=== PATIENT | female | born 1980 | race Caucasian/White ===

== ENCOUNTER 2018-05-19 16:14 | Inpatient (IN) | payer MEDICAID ==
[~2018-05-19] VITALS: Ht 157.5 cm; Wt 73.8 kg
[~2018-05-19 16:14] MED LIST: CLIN300C85 PO; CYCL-1 PO; DULO-31 PO; MECL25TA3 PO; NAPR-1154 PO; ONDA8TAB13 PO; PER5325T PO; PHEN-824 PO; PRED20TA PO; VALA500T PO
[2018-05-19] MEDS ORDERED: normal saline 1000ML IV soln IV ONE (16:50)
[2018-05-19] MEDS ORDERED: normal saline 1000ml 1,000 ML IV ONE (16:50)
[2018-05-19] MEDS ORDERED: levoFLOXACIN-Levaquin 750MG/D5 150 ML IV ONE (17:00)
[2018-05-19 17:10] LABS: HEMATOCRIT 34.8 % (35.0-45.0); HEMOGLOBIN 11.8 g/dl (12.0-16.0); MEAN CORPUSCULAR HEMOGLOBIN 28.6 PG (27.0-31.0); MEAN CORPUSCULAR HGB CONC 33.8 % (33.0-36.5); MEAN CORPUSCULAR VOLUME 84.6 FL (78-98); MEAN PLATELET VOLUME 7.4 FL (7.4-10.4); PLATELET COUNT 115 X10'3 (140-440); RED BLOOD COUNT 4.11 X10'6 (4.20-5.60); RED CELL DISTRIBUTION WIDTH 13.4 % (11.5-14.5); WHITE BLOOD COUNT 1.9 X10'3 (4.5-11.0)
[2018-05-19 17:24] LABS: INR 1.1 INR; PARTIAL THROMBOPLASTIN TIME 32 SECONDS (22-32); PROTHROMBIN TIME 11.4 SECONDS (9.0-12.0)
[2018-05-19 17:25] LABS: ALANINE AMINOTRANSFERASE 21 U/L (12-78); ALBUMIN 2.7 G/DL (3.4-5.0); ALBUMIN/GLOBULIN RATIO 0.9 (1.1-1.5); ALKALINE PHOSPHATASE 75 IU/L (46-116); ANION GAP 10 (8-16); ASPARTATE AMINO TRANSFERASE 21 U/L (10-37); BILIRUBIN,TOTAL 0.3 MG/DL (0.1-1.0); BLOOD UREA NITROGEN 20 MG/DL (7-18); BUN/CREATININE RATIO 19.2 (6.6-38.0); CALCIUM 7.6 MG/DL (8.5-10.1); CHLORIDE 103 MMOL/L (99-107); CREATININE 1.04 MG/DL (0.40-0.90); GLUCOSE 118 MG/DL (70-104); MAGNESIUM 1.3 MG/DL (1.5-2.4); POTASSIUM 3.1 MMOL/L (3.5-5.1); SODIUM 138 MMOL/L (135-145); TOTAL CARBON DIOXIDE 24.6 MMOL/L (24-32); TOTAL PROTEIN 5.6 G/DL (6.4-8.2); eGFR 60 ML/MIN
[2018-05-19 17:39] LABS: ANISOCYTOSIS 1+; MICROCYTOSIS 1+; PLATELET ESTIMATE DECREASED; TOTAL CELLS COUNTED 100
[2018-05-19] MEDS ORDERED: SERT50TA10 PO (17:50)
[2018-05-19] MEDS ORDERED: BACL20TA PO (17:50)
[2018-05-19] MEDS ORDERED: BUPR1FIL3 SL (17:50)
[2018-05-19] MEDS ORDERED: ACYC400T PO (17:50)
[2018-05-19] MEDS ORDERED: normal saline 1000ML IV soln IVB ONE (17:55)
[2018-05-19] MEDS ORDERED: NORepinephrine 8mg/ 250ml NS 250 ML IV SCH (19:00)
[2018-05-19 20:04] LABS: URINE HCG NEGATIVE (NEG)
[2018-05-19] MEDS ORDERED: HYDROcodone/acetaminophen 5mg/325mg tablet PO PRN (20:20)
[2018-05-19] MEDS ORDERED: HYDROcodone/acetaminophen 10/325mg tab PO PRN (20:20)
[2018-05-19] MEDS ORDERED: magnesium hydroxide 30ml (MOM) UD suspension PO PRN (20:20)
[2018-05-19] MEDS ORDERED: ipratropium/albuterol 3ml nebule NEB PRN (20:20)
[2018-05-19] MEDS ORDERED: acetaminophen 325mg tablet PO PRN (20:20)
[2018-05-19] MEDS: K, MAG and/or Phos replacement - Verify level? MC SCH (20:20)
[2018-05-19 20:37] LABS: URINE AMPHETAMINE SCREEN NEGATIVE (Neg); URINE BARBITUATE SCREEN NEGATIVE (Neg); URINE BENZODIAZEPINES SCREEN NEGATIVE (Neg); URINE CANNABINOID SCREEN POSITIVE (Neg); URINE COCAINE SCREEN NEGATIVE (Neg); URINE METHADONE SCREEN NEGATIVE (Neg); URINE OPIATE SCREEN POSITIVE (Neg); URINE PHENCYCLIDINE SCREEN NEGATIVE (Neg)
[2018-05-19] MEDS: CefTRIAXone/D5W-Rocephin 1gm 50 ML IV SCH (20:56)
[2018-05-19] MEDS: normal saline 1000ml 1,000 ML IV SCH (20:57)
[2018-05-19] MEDS: oseltamivir phos 75mg capsule PO SCH (20:57)
[2018-05-19] MEDS: potassium Cl 20 mEq SR tablet PO PRN (21:31)
[2018-05-19 21:54] LABS: CLARITY,URINE CLEAR (Clear); COLOR,URINE YELLOW (Yellow); GLUCOSE, URINE NEGATIVE (Neg); KETONES,URINE TRACE mg/dl (Neg); LEUKOCYTE ESTERASE ,URINE NEGATIVE (Neg); NITRITES, URINE NEGATIVE (Neg); OCCULT BLOOD,URINE NEGATIVE (Neg); PROTEIN,URINE 30 mg/dl (Neg); UA COLLECTION TYPE FOLEY CATH; UROBILINOGEN,URINE 0.2 E.U/dL (0.2-1.0)
[2018-05-19 22:10] LABS: BACTERIA,URINE NONE SEEN /HPF (Neg); RBC,URINE 0-2 /HPF (0-2); SQUAMOUS EPITHELIAL CELL,UR FEW /LPF (FEW); WBC,URINE 0-4 /HPF (0-4)
[2018-05-19 22:11] LABS: MUCUS STRANDS MODERATE /LPF (Neg); TRANSITIONAL EPI CELLS,URINE FEW /HPF
[2018-05-20] VITALS (24 sets, daily range): BP systolic 83–123; BP diastolic 40–68
[2018-05-20] MEDS ORDERED: normal saline 1000ml 1,000 ML IVB ONE (00:06)
[2018-05-20 00:21] LABS: OXYGEN SATURATION (MIXED VEN) 63.1 % (60-80); PO2 MIXED VENOUS (TEMP COR) 34.7 mmHg (35-46)
[2018-05-20] MEDS ORDERED: ketorolac tromethamine 15mg/ml inj. IV ONE (00:45)
[2018-05-20 02:56] LABS: BASOPHILS % (AUTO) 0 % (0-1); EOSINOPHILS % (AUTO) 0 % (0-6); HEMOGLOBIN 12.2 g/dl (12.0-16.0); LYMPHOCYTES # (AUTO) 0.6 X10'3 (1.1-4.8); LYMPHOCYTES % (AUTO) 8.6 % (21-51); MEAN CORPUSCULAR HEMOGLOBIN 28.1 PG (27.0-31.0); MEAN CORPUSCULAR VOLUME 85.2 FL (78-98); MEAN PLATELET VOLUME 8.1 FL (7.4-10.4); MONOCYTES # (AUTO) 0.2 X10'3 (0-0.9); MONOCYTES % (AUTO) 3.4 % (2-12); NEUTROPHILS # (AUTO) 6.1 X10'3 (1.8-7.7); PLATELET COUNT 156 X10'3 (140-440); RED BLOOD COUNT 4.34 X10'6 (4.20-5.60); RED CELL DISTRIBUTION WIDTH 13.4 % (11.5-14.5); WHITE BLOOD COUNT 6.9 X10'3 (4.5-11.0)
[2018-05-20 03:05] LABS: ALANINE AMINOTRANSFERASE 18 U/L (12-78); ALBUMIN 2.3 G/DL (3.4-5.0); ALBUMIN/GLOBULIN RATIO 0.8 (1.1-1.5); ALKALINE PHOSPHATASE 62 IU/L (46-116); ANION GAP 10 (8-16); ASPARTATE AMINO TRANSFERASE 20 U/L (10-37); BILIRUBIN,TOTAL 0.4 MG/DL (0.1-1.0); BLOOD UREA NITROGEN 18 MG/DL (7-18); CALCIUM 6.8 MG/DL (8.5-10.1); CHLORIDE 108 MMOL/L (99-107); CREATININE 0.82 MG/DL (0.40-0.90); GLUCOSE 84 MG/DL (70-104); MAGNESIUM 1.1 MG/DL (1.5-2.4); POTASSIUM 4.7 MMOL/L (3.5-5.1); SODIUM 139 MMOL/L (135-145); TOTAL CARBON DIOXIDE 20.7 MMOL/L (24-32); TOTAL PROTEIN 5.2 G/DL (6.4-8.2); eGFR 78 ML/MIN
[2018-05-20] MEDS: acetaminophen 325mg tablet PO PRN ×3 (03:50→17:48)
[2018-05-20] MEDS ORDERED: vancomycin/NS 1 GM ADD-VANTAGE 250 ML X 1 DOSE IV ONE (07:30)
[2018-05-20] MEDS: NORepinephrine 8mg/ 250ml NS 250 ML IV PRN (07:34)
[2018-05-20] MEDS: docusate sod 100mg capsule PO SCH ×2 (07:37→19:58)
[2018-05-20] MEDS: pantoprazole 40mg Tablet.DR PO SCH (07:37)
[2018-05-20] MEDS: heparin, porcine 5000 units/ml vial SQ SCH ×2 (07:37→19:59)
[2018-05-20] MEDS: sertraline 50mg tablet PO SCH (07:37)
[2018-05-20] MEDS: baclofen 10mg tablet PO SCH (07:38)
[2018-05-20] MEDS: acyclovir 200 MG capsule PO SCH ×2 (07:38→19:58)
[2018-05-20] MEDS: oseltamivir phos 75mg capsule PO SCH ×2 (07:38→19:58)
[2018-05-20] MEDS: ondansetron/PF 4mg/2ml inj IV PRN ×2 (07:52→17:38)
[2018-05-20] MEDS ORDERED: enoxaparin 40mg/0.4ml syringe SUBCUT SCH (08:00)
[2018-05-20] MEDS ORDERED: buprenorphine/naloxone 2-0.5mg sublingual tablet SL SCH (08:00)
[2018-05-20] MEDS ORDERED: buprenorphine/naloxone 8mg/2mg SL tablet SL SCH (08:00)
[2018-05-20] MEDS: K, MAG and/or Phos replacement - Verify level? MC SCH (08:16)
[2018-05-20 09:23] LABS: TOTAL CELLS COUNTED 100; TOXIC GRANULATION 1+
[2018-05-20 09:24] LABS: BURR CELLS 1+; PLATELET ESTIMATE NORMAL
[2018-05-20] MEDS: normal saline 1000ml 1,000 ML IV SCH ×2 (10:01→23:01)
[2018-05-20] MEDS ORDERED: magnesium 4gm in 100ml NS 100 ML IV ONE (11:20)
[2018-05-20] MEDS: AZITHROMYCIN 500 MG in NS 250ml IV.SOLN IV SCH (13:50)
[2018-05-20] MEDS: vancomycin/NS 1 GM ADD-VANTAGE 250 ML IV SCH (15:11)
[2018-05-20] MEDS ORDERED: levoFLOXACIN-Levaquin 750MG/D5 150 ML IV SCH (17:00)
[2018-05-20] MEDS: lactobacillus rhamnosus 10,000 MMU CELLS/CAPSULE PO SCH (19:58)
[2018-05-20 21:38] LABS: ALANINE AMINOTRANSFERASE 19 U/L (12-78); ALBUMIN 2.2 G/DL (3.4-5.0); ALBUMIN/GLOBULIN RATIO 0.6 (1.1-1.5); ALKALINE PHOSPHATASE 93 IU/L (46-116); ANION GAP 13 (8-16); ASPARTATE AMINO TRANSFERASE 20 U/L (10-37); BILIRUBIN,TOTAL 0.4 MG/DL (0.1-1.0); BLOOD UREA NITROGEN 15 MG/DL (7-18); BUN/CREATININE RATIO 19.2 (6.6-38.0); CALCIUM 7.4 MG/DL (8.5-10.1); CHLORIDE 106 MMOL/L (99-107); CREATININE 0.78 MG/DL (0.40-0.90); GLUCOSE 73 MG/DL (70-104); MAGNESIUM 2.7 MG/DL (1.5-2.4); PHOSPHORUS 2.9 MG/DL (2.3-4.5); POTASSIUM 3.9 MMOL/L (3.5-5.1); SODIUM 138 MMOL/L (135-145); TOTAL CARBON DIOXIDE 19.4 MMOL/L (24-32); TOTAL PROTEIN 5.7 G/DL (6.4-8.2); eGFR 83 ML/MIN
[2018-05-20] MEDS: CefTRIAXone/D5W-Rocephin 1gm 50 ML IV SCH (21:49)
[2018-05-20] MEDS: buprenorphine/naloxone 2-0.5mg sublingual tablet SL SCH (21:56)
[2018-05-21] VITALS (24 sets, daily range): BP systolic 97–133; BP diastolic 50–78
[2018-05-21] MEDS: vancomycin/NS 1 GM ADD-VANTAGE 250 ML IV SCH ×3 (00:58→16:23)
[2018-05-21] MEDS: NORepinephrine 8mg/ 250ml NS 250 ML IV PRN (01:16)
[2018-05-21] MEDS: ondansetron/PF 4mg/2ml inj IV PRN (02:31)
[2018-05-21] MEDS: acetaminophen 325mg tablet PO PRN ×2 (02:31→12:57)
[2018-05-21 03:09] LABS: BASOPHILS % (AUTO) 0.1 % (0-1); EOSINOPHILS % (AUTO) 0 % (0-6); HEMATOCRIT 35.1 % (35.0-45.0); HEMOGLOBIN 11.7 g/dl (12.0-16.0); LYMPHOCYTES # (AUTO) 0.6 X10'3 (1.1-4.8); LYMPHOCYTES % (AUTO) 5.2 % (21-51); MEAN CORPUSCULAR HEMOGLOBIN 28.6 PG (27.0-31.0); MEAN CORPUSCULAR HGB CONC 33.3 % (33.0-36.5); MEAN CORPUSCULAR VOLUME 85.8 FL (78-98); MONOCYTES # (AUTO) 0.4 X10'3 (0-0.9); MONOCYTES % (AUTO) 3.2 % (2-12); NEUTROPHILS # (AUTO) 11.4 X10'3 (1.8-7.7); NEUTROPHILS % (AUTO) 91.5 % (42-75); PLATELET COUNT 169 X10'3 (140-440); RED BLOOD COUNT 4.09 X10'6 (4.20-5.60); RED CELL DISTRIBUTION WIDTH 13.7 % (11.5-14.5); WHITE BLOOD COUNT 12.5 X10'3 (4.5-11.0)
[2018-05-21 03:23] LABS: ALANINE AMINOTRANSFERASE 17 U/L (12-78); ALBUMIN 2.1 G/DL (3.4-5.0); ALBUMIN/GLOBULIN RATIO 0.6 (1.1-1.5); ALKALINE PHOSPHATASE 94 IU/L (46-116); ANION GAP 13 (8-16); ASPARTATE AMINO TRANSFERASE 19 U/L (10-37); BILIRUBIN,TOTAL 0.4 MG/DL (0.1-1.0); BLOOD UREA NITROGEN 15 MG/DL (7-18); BUN/CREATININE RATIO 21.1 (6.6-38.0); CALCIUM 7.6 MG/DL (8.5-10.1); CHLORIDE 106 MMOL/L (99-107); CREATININE 0.71 MG/DL (0.40-0.90); GLUCOSE 83 MG/DL (70-104); MAGNESIUM 2.8 MG/DL (1.5-2.4); PHOSPHORUS 2.5 MG/DL (2.3-4.5); POTASSIUM 3.6 MMOL/L (3.5-5.1); SODIUM 139 MMOL/L (135-145); TOTAL CARBON DIOXIDE 19.7 MMOL/L (24-32); TOTAL PROTEIN 5.6 G/DL (6.4-8.2); eGFR > 90 ML/MIN
[2018-05-21] MEDS ORDERED: SUMAtriptan 25 MG tablet PO ONE (07:00)
[2018-05-21] MEDS ORDERED: proCHLORperazine 10 MG/2 ml inj IV ONE (07:00)
[2018-05-21 07:32] LABS: ANISOCYTOSIS 1+; BURR CELLS 2+; MICROCYTOSIS 1+; PLATELET ESTIMATE NORMAL; TOTAL CELLS COUNTED 100; TOXIC GRANULATION 1+
[2018-05-21] MEDS: AZITHROMYCIN 500 MG in NS 250ml IV.SOLN IV SCH (07:58)
[2018-05-21] MEDS: pantoprazole 40mg Tablet.DR PO SCH (07:59)
[2018-05-21] MEDS: lactobacillus rhamnosus 10,000 MMU CELLS/CAPSULE PO SCH ×2 (07:59→20:45)
[2018-05-21] MEDS: docusate sod 100mg capsule PO SCH ×2 (08:00→20:45)
[2018-05-21] MEDS: acyclovir 200 MG capsule PO SCH ×2 (08:00→20:46)
[2018-05-21] MEDS: sertraline 50mg tablet PO SCH (08:00)
[2018-05-21] MEDS: baclofen 10mg tablet PO SCH (08:00)
[2018-05-21] MEDS: K, MAG and/or Phos replacement - Verify level? MC SCH (08:00)
[2018-05-21] MEDS: oseltamivir phos 75mg capsule PO SCH ×2 (08:00→20:45)
[2018-05-21] MEDS: heparin, porcine 5000 units/ml vial SQ SCH ×2 (08:02→20:46)
[2018-05-21] MEDS: buprenorphine/naloxone 2-0.5mg sublingual tablet SL SCH ×2 (08:10→20:45)
[2018-05-21] MEDS ORDERED: normal saline 1000ml 1,000 ML IV SCH (08:25)
[2018-05-21] MEDS: normal saline 1000ml 1,000 ML IV SCH ×2 (12:19→13:40)
[2018-05-21] MEDS: metoclopramide 5 mg/ml inj IV PRN (12:53)
[2018-05-21] MEDS ORDERED: VANCOMYCIN LEVEL IV NR (15:30)
[2018-05-21] MEDS: CefTRIAXone/D5W-Rocephin 1gm 50 ML IV SCH (20:46)
[2018-05-21] MEDS ORDERED: oseltamivir phos 75mg capsule PO ONE (21:05)
[2018-05-21] MEDS ORDERED: acyclovir 200 MG capsule PO SCH (21:05)
[2018-05-21] MEDS ORDERED: ketorolac trometh. 30mg/ml inj. IV ONE (21:30)
[2018-05-21] MEDS: SUMAtriptan 25 MG tablet PO PRN (23:16)
[2018-05-22] VITALS (13 sets, daily range): BP systolic 108–133; BP diastolic 64–80
[2018-05-22] MEDS ORDERED: hydrocortisone acetate 25mg rectal suppository RC PRN
[2018-05-22] MEDS: vancomycin/NS 1 GM ADD-VANTAGE 250 ML IV SCH (00:54)
[2018-05-22 02:56] LABS: BASOPHILS % (AUTO) 0.1 % (0-1); EOSINOPHILS # (AUTO) 0.2 X10'3 (0-0.9); EOSINOPHILS % (AUTO) 1.2 % (0-6); HEMATOCRIT 30.6 % (35.0-45.0); HEMOGLOBIN 10.4 g/dl (12.0-16.0); LYMPHOCYTES # (AUTO) 0.7 X10'3 (1.1-4.8); LYMPHOCYTES % (AUTO) 5.5 % (21-51); MEAN CORPUSCULAR HEMOGLOBIN 28.5 PG (27.0-31.0); MEAN CORPUSCULAR HGB CONC 33.9 % (33.0-36.5); MEAN PLATELET VOLUME 7.7 FL (7.4-10.4); MONOCYTES # (AUTO) 0.4 X10'3 (0-0.9); MONOCYTES % (AUTO) 3.2 % (2-12); NEUTROPHILS # (AUTO) 11.5 X10'3 (1.8-7.7); PLATELET COUNT 163 X10'3 (140-440); RED BLOOD COUNT 3.65 X10'6 (4.20-5.60); RED CELL DISTRIBUTION WIDTH 13.8 % (11.5-14.5); WHITE BLOOD COUNT 12.8 X10'3 (4.5-11.0)
[2018-05-22 03:08] LABS: ALANINE AMINOTRANSFERASE 15 U/L (12-78); ALBUMIN 1.9 G/DL (3.4-5.0); ALBUMIN/GLOBULIN RATIO 0.5 (1.1-1.5); ALKALINE PHOSPHATASE 90 IU/L (46-116); ANION GAP 9 (8-16); ASPARTATE AMINO TRANSFERASE 15 U/L (10-37); BILIRUBIN,TOTAL 0.3 MG/DL (0.1-1.0); BLOOD UREA NITROGEN 11 MG/DL (7-18); BUN/CREATININE RATIO 20.8 (6.6-38.0); CALCIUM 7.6 MG/DL (8.5-10.1); CHLORIDE 107 MMOL/L (99-107); CREATININE 0.53 MG/DL (0.40-0.90); GLUCOSE 73 MG/DL (70-104); MAGNESIUM 2.3 MG/DL (1.5-2.4); PHOSPHORUS 1.4 MG/DL (2.3-4.5); POTASSIUM 3.2 MMOL/L (3.5-5.1); SODIUM 140 MMOL/L (135-145); TOTAL CARBON DIOXIDE 23.8 MMOL/L (24-32); TOTAL PROTEIN 5.4 G/DL (6.4-8.2); eGFR > 90 ML/MIN
[2018-05-22] MEDS ORDERED: potassium Cl 40MEQ/250ML bag 250 ML IV PRN ×2 (03:30)
[2018-05-22] MEDS: metoclopramide 5 mg/ml inj IV PRN ×2 (06:55→13:01)
[2018-05-22] MEDS: acetaminophen 325mg tablet PO PRN ×2 (06:56→20:28)
[2018-05-22] MEDS: normal saline 1000ml 1,000 ML IV SCH ×2 (07:24→23:13)
[2018-05-22] MEDS: oseltamivir phos 75mg capsule PO SCH ×2 (08:00→20:38)
[2018-05-22] MEDS: K, MAG and/or Phos replacement - Verify level? MC SCH (08:00)
[2018-05-22] MEDS: AZITHROMYCIN 500 MG in NS 250ml IV.SOLN IV SCH (08:42)
[2018-05-22] MEDS: lactobacillus rhamnosus 10,000 MMU CELLS/CAPSULE PO SCH ×2 (08:44→20:31)
[2018-05-22] MEDS: sertraline 50mg tablet PO SCH (08:44)
[2018-05-22] MEDS: pantoprazole 40mg Tablet.DR PO SCH (08:44)
[2018-05-22] MEDS: docusate sod 100mg capsule PO SCH ×2 (08:44→20:00)
[2018-05-22] MEDS: baclofen 10mg tablet PO SCH (08:45)
[2018-05-22] MEDS: buprenorphine/naloxone 2-0.5mg sublingual tablet SL SCH ×2 (08:45→20:31)
[2018-05-22] MEDS: heparin, porcine 5000 units/ml vial SQ SCH ×2 (08:47→20:31)
[2018-05-22] MEDS ORDERED: vancomycin inj 1,250 MG in normal saline 250ml IV soln 250 ML IV SCH (09:00)
[2018-05-22] MEDS: acyclovir 200 MG capsule PO SCH ×2 (09:57→20:28)
[2018-05-22] MEDS: SUMAtriptan 25 MG tablet PO PRN ×2 (11:25→23:12)
[2018-05-22] MEDS ORDERED: furosemide 40mg/4ml inj IV ONE (15:35)
[2018-05-22] MEDS ORDERED: potassium chloride 10mEq CAPSULE.SA PO ONE (15:35)
[2018-05-22] MEDS ORDERED: potassium chloride 10mEq ER tablet PO ONE (16:05)
[2018-05-22] MEDS: vancomycin inj 1,250 MG in normal saline 250ml IV soln 250 ML IV SCH (17:40)
[2018-05-22] MEDS: CefTRIAXone/D5W-Rocephin 1gm 50 ML IV SCH (20:32)
[2018-05-23 00:13] LABS: ALANINE AMINOTRANSFERASE 18 U/L (12-78); ALBUMIN/GLOBULIN RATIO 0.5 (1.1-1.5); ALKALINE PHOSPHATASE 95 IU/L (46-116); ANION GAP 5 (8-16); ASPARTATE AMINO TRANSFERASE 22 U/L (10-37); BILIRUBIN,TOTAL 0.2 MG/DL (0.1-1.0); BLOOD UREA NITROGEN 7 MG/DL (7-18); BUN/CREATININE RATIO 12.7 (6.6-38.0); CALCIUM 7.8 MG/DL (8.5-10.1); CHLORIDE 105 MMOL/L (99-107); CREATININE 0.55 MG/DL (0.40-0.90); GLUCOSE 93 MG/DL (70-104); MAGNESIUM 1.5 MG/DL (1.5-2.4); PHOSPHORUS 1.5 MG/DL (2.3-4.5); SODIUM 141 MMOL/L (135-145); TOTAL CARBON DIOXIDE 30.9 MMOL/L (24-32); TOTAL PROTEIN 5.7 G/DL (6.4-8.2); eGFR > 90 ML/MIN
[2018-05-23] MEDS: potassium Cl 20 mEq SR tablet PO PRN ×5 (00:24→23:08)
[2018-05-23] MEDS: vancomycin inj 1,250 MG in normal saline 250ml IV soln 250 ML IV SCH ×3 (02:37→17:15)
[2018-05-23 06:00] VITALS: BP 131/77
[2018-05-23] MEDS: pantoprazole 40mg Tablet.DR PO SCH (07:11)
[2018-05-23] MEDS: oseltamivir phos 75mg capsule PO SCH ×2 (07:11→20:33)
[2018-05-23] MEDS: docusate sod 100mg capsule PO SCH ×2 (07:11→20:33)
[2018-05-23] MEDS: baclofen 10mg tablet PO SCH (07:11)
[2018-05-23] MEDS: lactobacillus rhamnosus 10,000 MMU CELLS/CAPSULE PO SCH ×2 (07:11→20:33)
[2018-05-23] MEDS: sertraline 50mg tablet PO SCH (07:13)
[2018-05-23] MEDS: azithromycin 250mg tablet PO SCH (07:13)
[2018-05-23] MEDS: acyclovir 200 MG capsule PO SCH ×2 (07:14→20:33)
[2018-05-23] MEDS: buprenorphine/naloxone 2-0.5mg sublingual tablet SL SCH ×2 (07:15→20:36)
[2018-05-23] MEDS: heparin, porcine 5000 units/ml vial SQ SCH ×2 (07:16→20:36)
[2018-05-23] MEDS ORDERED: VANCOMYCIN LEVEL IV ONE (09:30)
[2018-05-23 09:35] LABS: BASOPHILS % (AUTO) 0.2 % (0-1); EOSINOPHILS % (AUTO) 0.5 % (0-6); HEMATOCRIT 32.9 % (35.0-45.0); HEMOGLOBIN 11.3 g/dl (12.0-16.0); LYMPHOCYTES # (AUTO) 1.2 X10'3 (1.1-4.8); LYMPHOCYTES % (AUTO) 21.1 % (21-51); MEAN CORPUSCULAR HEMOGLOBIN 28.7 PG (27.0-31.0); MEAN CORPUSCULAR HGB CONC 34.2 % (33.0-36.5); MEAN CORPUSCULAR VOLUME 83.8 FL (78-98); MEAN PLATELET VOLUME 6.6 FL (7.4-10.4); MONOCYTES # (AUTO) 0.4 X10'3 (0-0.9); MONOCYTES % (AUTO) 7.2 % (2-12); NEUTROPHILS # (AUTO) 4.1 X10'3 (1.8-7.7); PLATELET COUNT 195 X10'3 (140-440); RED BLOOD COUNT 3.93 X10'6 (4.20-5.60); RED CELL DISTRIBUTION WIDTH 13.4 % (11.5-14.5); WHITE BLOOD COUNT 5.8 X10'3 (4.5-11.0)
[2018-05-23 10:00] VITALS: BP 131/85
[2018-05-23 10:00] LABS: ALANINE AMINOTRANSFERASE 18 U/L (12-78); ALBUMIN/GLOBULIN RATIO 0.6 (1.1-1.5); ALKALINE PHOSPHATASE 86 IU/L (46-116); ANION GAP 8 (8-16); ASPARTATE AMINO TRANSFERASE 22 U/L (10-37); BILIRUBIN,TOTAL 0.2 MG/DL (0.1-1.0); BLOOD UREA NITROGEN 6 MG/DL (7-18); BUN/CREATININE RATIO 12.2 (6.6-38.0); CALCIUM 8.1 MG/DL (8.5-10.1); CHLORIDE 106 MMOL/L (99-107); CREATININE 0.49 MG/DL (0.40-0.90); GLUCOSE 103 MG/DL (70-104); MAGNESIUM 1.3 MG/DL (1.5-2.4); POTASSIUM 3.3 MMOL/L (3.5-5.1); SODIUM 142 MMOL/L (135-145); TOTAL CARBON DIOXIDE 27.9 MMOL/L (24-32); TOTAL PROTEIN 5.6 G/DL (6.4-8.2); eGFR > 90 ML/MIN
[2018-05-23 10:03] LABS: PHOSPHORUS 1.2 MG/DL (2.3-4.5)
[2018-05-23] MEDS ORDERED: furosemide 40mg/4ml inj IV ONE (16:20)
[2018-05-23] MEDS ORDERED: potassium chloride 10mEq CAPSULE.SA PO ONE (16:30)
[2018-05-23] MEDS ORDERED: potassium chloride 10mEq ER tablet PO ONE (16:55)
[2018-05-23] MEDS: acetaminophen 325mg tablet PO PRN (17:40)
[2018-05-23 18:00] VITALS: BP 138/83
[2018-05-23] MEDS: CefTRIAXone/D5W-Rocephin 1gm 50 ML IV SCH (20:37)
[2018-05-23 22:00] VITALS: BP 109/73
[2018-05-24] MEDS: vancomycin inj 1,250 MG in normal saline 250ml IV soln 250 ML IV SCH ×2 (02:10→10:27)
[2018-05-24 06:09] LABS: ALANINE AMINOTRANSFERASE 24 U/L (12-78); ALBUMIN 2.2 G/DL (3.4-5.0); ALBUMIN/GLOBULIN RATIO 0.6 (1.1-1.5); ALKALINE PHOSPHATASE 88 IU/L (46-116); ANION GAP 6 (8-16); ASPARTATE AMINO TRANSFERASE 25 U/L (10-37); BILIRUBIN,TOTAL 0.2 MG/DL (0.1-1.0); BLOOD UREA NITROGEN 6 MG/DL (7-18); BUN/CREATININE RATIO 11.1 (6.6-38.0); CALCIUM 8.4 MG/DL (8.5-10.1); CHLORIDE 104 MMOL/L (99-107); CREATININE 0.54 MG/DL (0.40-0.90); GLUCOSE 98 MG/DL (70-104); MAGNESIUM 1.5 MG/DL (1.5-2.4); PHOSPHORUS 2.2 MG/DL (2.3-4.5); POTASSIUM 3.7 MMOL/L (3.5-5.1); SODIUM 140 MMOL/L (135-145); TOTAL CARBON DIOXIDE 29.7 MMOL/L (24-32); eGFR > 90 ML/MIN
[2018-05-24 06:15] LABS: BASOPHILS % (AUTO) 0.3 % (0-1); EOSINOPHILS # (AUTO) 0.1 X10'3 (0-0.9); HEMATOCRIT 34.9 % (35.0-45.0); HEMOGLOBIN 11.7 g/dl (12.0-16.0); LYMPHOCYTES # (AUTO) 1.4 X10'3 (1.1-4.8); LYMPHOCYTES % (AUTO) 24.6 % (21-51); MEAN CORPUSCULAR HEMOGLOBIN 28.3 PG (27.0-31.0); MEAN CORPUSCULAR HGB CONC 33.6 % (33.0-36.5); MEAN CORPUSCULAR VOLUME 84.3 FL (78-98); MEAN PLATELET VOLUME 6.9 FL (7.4-10.4); MONOCYTES # (AUTO) 0.6 X10'3 (0-0.9); MONOCYTES % (AUTO) 10.6 % (2-12); NEUTROPHILS # (AUTO) 3.5 X10'3 (1.8-7.7); NEUTROPHILS % (AUTO) 63.5 % (42-75); PLATELET COUNT 228 X10'3 (140-440); RED BLOOD COUNT 4.14 X10'6 (4.20-5.60); RED CELL DISTRIBUTION WIDTH 13.5 % (11.5-14.5); WHITE BLOOD COUNT 5.6 X10'3 (4.5-11.0)
[2018-05-24 07:29] VITALS: BP 111/61
[2018-05-24] MEDS: docusate sod 100mg capsule PO SCH (09:10)
[2018-05-24] MEDS: pantoprazole 40mg Tablet.DR PO SCH (09:10)
[2018-05-24] MEDS: lactobacillus rhamnosus 10,000 MMU CELLS/CAPSULE PO SCH (09:10)
[2018-05-24] MEDS: azithromycin 250mg tablet PO SCH (09:11)
[2018-05-24] MEDS: sertraline 50mg tablet PO SCH (09:11)
[2018-05-24] MEDS: acyclovir 200 MG capsule PO SCH (09:11)
[2018-05-24] MEDS: oseltamivir phos 75mg capsule PO SCH (09:11)
[2018-05-24] MEDS: baclofen 10mg tablet PO SCH (09:11)
[2018-05-24] MEDS: buprenorphine/naloxone 2-0.5mg sublingual tablet SL SCH (09:11)
[2018-05-24] MEDS: heparin, porcine 5000 units/ml vial SQ SCH (09:13)
[2018-05-24] MEDS ORDERED: SUMA25TA9 PO (09:36)
[2018-05-24] MEDS ORDERED: LEVO500T2 PO (09:36)
[2018-05-24] MEDS ORDERED: LACT1CAP26 PO (09:36)
[2018-05-24] MEDS ORDERED: PANT40TA4 PO (09:36)
[2018-05-24] MEDS ORDERED: TAM75C PO (09:36)
[2018-05-24 10:00] VITALS: BP 122/69
== END 2018-05-24 14:15 | disposition home or self-care (01) | DRG 720 ==
LOC: ER 16:15 → ED HOLD 20:19 → ICU 2S 23:30 → ORTHO 4S 05-22 08:15
PROVIDERS: ADMIT Internal Medicine Critical Care Medicine; ATTEND Internal Medicine Critical Care Medicine
PROC: 02HV33Z Insertion of Infusion Device into Superior Vena Cava, Percutaneous Approach (ICD-10-PCS; principal; 2018-05-19)
DX: A41.9 Sepsis, unspecified organism (principal); R65.21 Severe sepsis with septic shock; J10.08 Influenza due to other identified influenza virus with other specified pneumonia; J18.1 Lobar pneumonia, unspecified organism; F17.210 Nicotine dependence, cigarettes, uncomplicated; F32.9 Major depressive disorder, single episode, unspecified; G43.909 Migraine, unspecified, not intractable, without status migrainosus; K59.09 Other constipation; Z83.3 Family history of diabetes mellitus; Z87.442 Personal history of urinary calculi; Z87.440 Personal history of urinary (tract) infections; Z79.899 Other long term (current) drug therapy
CPT/HCPCS: 36415; 36556; 71045; 80053; 80202; 80305; 81001; 81025; 82810; 83605; 83735; 83880; 84100; 84145; 85025; 85610; 85730; 87040; 87070; 87502; 87503; 93005; 96361; 96365; 96366; 96368; 97110; 97116; 97162; 97530; 99285; G0378; J0456; J0696; J0780; J1644; J1885; J1940; J1956; J2405; J2765; J3370; J3475; J3480; J7030

== ENCOUNTER 2019-12-02 08:55 | Emergency (ER) | payer MEDICAID, OTHER ==
[~2019-12-02] VITALS: Ht 157.5 cm; Wt 82.0 kg
[~2019-12-02 08:55] MED LIST changes: +ACYC400T PO; +BACL20TA PO; +BUPR1FIL3 SL; -CLIN300C85 PO; -CYCL-1 PO; -DULO-31 PO; +LACT1CAP26 PO; -MECL25TA3 PO; -NAPR-1154 PO; -ONDA8TAB13 PO; +PANT40TA4 PO; -PER5325T PO; -PHEN-824 PO; -PRED20TA PO; +SERT50TA10 PO; +SUMA25TA9 PO; +TAM75C PO; -VALA500T PO
[2019-12-02] MEDS ORDERED: LIDOcaine 5% patch TP ONE (09:50)
[2019-12-02] MEDS ORDERED: ketorolac trometh. 30mg/ml inj. IM ONE (09:50)
[2019-12-02] MEDS ORDERED: traMADol 50MG tablet PO ONE (09:50)
[2019-12-02] MEDS ORDERED: TRAM1TAB7 PO (09:57)
[2019-12-02 10:13] VITALS: BP 120/75
== END 2019-12-02 10:20 | disposition home or self-care (01) ==
LOC: ER 08:56
DX: M25.521 Pain in right elbow (principal); M25.531 Pain in right wrist; Z72.89 Other problems related to lifestyle; Z79.899 Other long term (current) drug therapy
CPT/HCPCS: 96372; 99283; J1885

== ENCOUNTER 2021-02-14 16:20 | Emergency (ER) | payer OTHER ==
[~2021-02-14] VITALS: Ht 157.5 cm; Wt 82.7 kg
[~2021-02-14 16:20] MED LIST changes: +ACYC-126 PO; -ACYC400T PO; -PANT40TA4 PO; +PANT40TA54 PO; +SERT-433 PO; -SERT50TA10 PO
[2021-02-14 16:24] VITALS: BP 131/66
== END 2021-02-14 20:08 | disposition home or self-care (01) ==
LOC: ER 16:20
DX: M79.671 Pain in right foot (principal); Z87.442 Personal history of urinary calculi; Z87.440 Personal history of urinary (tract) infections; Z72.89 Other problems related to lifestyle; Z79.899 Other long term (current) drug therapy; Z79.2 Long term (current) use of antibiotics
CPT/HCPCS: 73610; 73630; 99284

== ENCOUNTER 2022-05-18 20:54 | Emergency (ER) | payer SELFPAY | END 2022-05-18 21:14 | disposition left against medical advice (07) | LOC: ER 20:55 | DX: Z00.8 Encounter for other general examination (principal); Z53.21 Procedure and treatment not carried out due to patient leaving prior to being seen by health care provider ==

== ENCOUNTER 2023-07-23 10:37 | Emergency (ER) | payer OTHER ==
[~2023-07-23] VITALS: Ht 157.5 cm; Wt 83.7 kg
[2023-07-23 10:44] VITALS: BP 159/75; PULSE 82; RESP 16; TEMP 98; O2SAT 100
== END 2023-07-23 11:54 | disposition home or self-care (01) ==
LOC: ER 10:37
DX: S93.491A Sprain of other ligament of right ankle, initial encounter (principal); X50.1XXA Overexertion from prolonged static or awkward postures, initial encounter; Y93.89 Activity, other specified; Y92.89 Other specified places as the place of occurrence of the external cause; Y99.8 Other external cause status; Z87.448 Personal history of other diseases of urinary system; Z79.899 Other long term (current) drug therapy
CPT/HCPCS: 73630; 99284; L4360

== ENCOUNTER 2023-12-11 17:27 | Emergency (ER) | payer OTHER ==
[~2023-12-11] VITALS: Ht 157.5 cm; Wt 178.0 kg
[2023-12-11 17:58] VITALS: TEMP 98.4
[2023-12-11] MEDS: ondansetron 4mg rapidly disintigrating tab PO ONE (19:24)
[2023-12-11] MEDS ORDERED: SUMA50TA PO (19:29)
[2023-12-11] MEDS ORDERED: ONDA-245 PO (19:29)
[2023-12-11] MEDS: SUMAtriptan 25 MG tablet PO ONE (19:34)
[2023-12-11 19:37] VITALS: BP 136/61; PULSE 88; RESP 18; O2SAT 97
== END 2023-12-11 19:44 | disposition home or self-care (01) ==
LOC: ER 17:28
DX: G43.909 Migraine, unspecified, not intractable, without status migrainosus (principal); R11.2 Nausea with vomiting, unspecified
CPT/HCPCS: 99283